=== PATIENT | female | born 1945 | race Asian ===

== ENCOUNTER 2020-03-15 16:30 | Emergency (ER) | payer BC, OTHER ==
[~2020-03-15] VITALS: Ht 162.6 cm; Wt 50.3 kg
--- NOTE | 2020-03-15 16:48 | NUR ---
PT BIBRA C/O DIZZINESS AND WEAKNESS. PT STATES THAT SHE 'ALMOST' FELL AT HOME SO SHE CALLED THE AMBULANCE. VS CHECKED. AWAITING MD ARREDONDO.
--- NOTE | 2020-03-15 16:49 | NUR ---
PT WAS SEEN BY
[2020-03-15] MEDS ORDERED: diphenhydrAMINE HCL 50 MG/ML VIAL IV ONE (17:00)
[2020-03-15] MEDS ORDERED: IV NS 0.9% 1,000 ML BAG IV ONE (17:00)
[2020-03-15] MEDS ORDERED: METOCLOPRAMIDE HCL 10 MG/2 ML VIAL IV ONE (17:00)
[2020-03-15] MEDS ORDERED: MECLIZINE HCL 12.5 MG TABLET PO ONE (17:00)
[2020-03-15] MEDS ORDERED: METOCLOPRAMIDE HCL 10 MG/2 ML VIAL ONE (17:01)
[2020-03-15] MEDS ORDERED: MECLIZINE HCL 25 MG TABLET ONE (17:01)
[2020-03-15] MEDS ORDERED: diphenhydrAMINE HCL 50 MG/ML VIAL ONE (17:01)
[2020-03-15 17:31] LABS: BASOPHILS # (AUTO) 0.1 /CMM (0.0-0.2); BASOPHILS % (AUTO) 1.1 % (0.0-2.0); EOSINOPHILS % (AUTO) 1.2 % (0.0-6.0); HEMATOCRIT 39 % (33-45); LYMPHOCYTES # (AUTO) 2.6 /CMM (0.8-4.8); LYMPHOCYTES % (AUTO) 37.5 % (20.0-44.0); MEAN CORPUSCULAR HGB CONC 33 g/dl (31.0-36.0); MEAN CORPUSCULAR VOLUME 97 fL (82-100); MONOCYTES # (AUTO) 0.3 /CMM (0.1-1.30); MONOCYTES % (AUTO) 4.9 % (2.0-12.0); NEUTROPHILS # (AUTO) 3.8 /CMM (1.8-8.9); NEUTROPHILS % (AUTO) 55.3 % (43.0-81.0); PLATELET COUNT (AUTO) 194 /CMM (150-450); RED BLOOD CELL COUNT(AUTO) 4.01 MIL/uL (4.0-5.2); WHITE BLOOD COUNT (AUTO) 6.8 K/uL (4.3-11.0)
--- NOTE | 2020-03-15 17:32 | NUR ---
PICKED UP BY YOLIS MERRITT VIA [facility] FOR CT SCAN
[2020-03-15 17:52] LABS: POTASSIUM 5.1 mmol/L (3.5-5.1); SODIUM SERUM 135 mmol/L (136-145)
[2020-03-15 17:53] LABS: CALCIUM, SERUM 9.1 mg/dL (8.5-10.1); CARBON DIOXIDE 26 mmol/L (21-32); CHLORIDE 102 mmol/L (98-107); CREATININE 0.5 mg/dL (0.6-1.3); GLUCOSE 88 mg/dL (74-106); UREA NITROGEN, BLOOD 12 mg/dL (7-18)
--- NOTE | 2020-03-15 19:08 | NUR ---
CALLING PTS MANDI COOPER [phone] TO SEE IF SHE CAN ENERGY ADVISOR PT FROM THE HOSPITAL. HOWEVER, NO PICK, CALLED 3X. LEFT MESSAGE 3X. Addendum: 03/15/20 at 1919 by SUHAS ENDORSED TO ANN PITT
--- NOTE | 2020-03-15 20:08 | NUR ---
PRESCRIPTIONS PROVIDED TO THE PATIENT AND EXPLAINED.
--- NOTE | 2020-03-15 20:08 | NUR ---
Patient discharged to home in stable condition. Written and verbal after care instructions given. Patient verbalizes understanding of instruction.
--- NOTE | 2020-03-15 20:08 | NUR ---
PATIENT IS PICKED UP BY FRIEND,
[2020-03-15 20:09] VITALS: BP 133/76
== END 2020-03-15 20:09 | disposition home or self-care (01) ==
LOC: ER 16:30
DX: R42 Dizziness and giddiness (principal); I10 Essential (primary) hypertension; E78.00 Pure hypercholesterolemia, unspecified; E78.5 Hyperlipidemia, unspecified; Z98.890 Other specified postprocedural states
CPT/HCPCS: 36415; 70450; 80048; 84484; 85025; 93005; 96361; 96374; 96375; 99285; J1200; J2765; J7030 ×2; J8597